=== PATIENT | female | born 1990 | race Caucasian/White ===

== ENCOUNTER 2019-07-10 20:39 | Emergency (ER) | payer OTHER ==
[~2019-07-10] VITALS: Ht 149.9 cm; Wt 59.9 kg
[2019-07-11 00:28] VITALS: BP_SYST 140
--- NOTE | 2019-07-11 00:34 | NUR ---
Patient triaged and placed in waiting room. VSS and patient appears in no acute distress at this time. Accompanied by friend, awaiting available bed, and MD notified of need for MSE.
--- NOTE | 2019-07-11 03:06 | NUR ---
Jairon oden in [facility] - 07/11/19 at 0307 by SDEDRW Pt placed in bed 7.
--- NOTE | 2019-07-11 04:54 | NUR ---
Ambulatory to hallway bed 1
--- NOTE | 2019-07-11 05:41 | NUR ---
Dr. Hammer evaluating pt in [facility]
[2019-07-11 06:20] VITALS: BP_SYST 140
--- NOTE | 2019-07-11 06:20 | NUR ---
Patient given written and verbal discharge instructions and verbalizes understanding. ER MD DR SCHUSTER discussed with patient the results and treatment provided. Patient in stable condition. ID arm band removed. Patient educated on pain management and to follow up with PMD. Pain Scale . Opportunity for questions provided and answered. Medication side effect fact sheet provided.
--- NOTE | 2019-07-11 06:41 | NUR ---
Jairon oden in [facility] - 07/11/19 at [address] Hammer evaluating pt in [facility]
== END 2019-07-11 06:20 | disposition home or self-care (01) ==
LOC: SED 20:39
DX: S09.90XA Unspecified injury of head, initial encounter (principal); V49.40XA Driver injured in collision with unspecified motor vehicles in traffic accident, initial encounter; Y93.89 Activity, other specified; Y92.89 Other specified places as the place of occurrence of the external cause; Y99.8 Other external cause status
CPT/HCPCS: 70450-TC; 81025; 99284

== ENCOUNTER 2023-08-27 15:03 | Emergency (ER) | payer BC, OTHER ==
[~2023-08-27] VITALS: Ht 157.5 cm; Wt 63.5 kg
[2023-08-27 15:03] VITALS: BP_SYST 158; PULSE 85; RESP 20; TEMP 98.2; O2SAT 100
[2023-08-27] MEDS ORDERED: MORPHINE 2 MG/ML INJ. SYRINGE IVP ONE (18:30)
[2023-08-27] MEDS ORDERED: DIPHENHYDRAMINE INJ 50 MG/ML VIAL IVP ONE (18:45)
[2023-08-27 19:11] VITALS: BP_SYST 136; PULSE 73; RESP 18; TEMP 98.2; O2SAT 100
== END 2023-08-27 19:09 | disposition home or self-care (01) ==
LOC: SED 15:03
DX: O36.4XX1 Maternal care for intrauterine death, fetus 1 (principal); O26.891 Other specified pregnancy related conditions, first trimester; Z3A.11 11 weeks gestation of pregnancy; Z88.2 Allergy status to sulfonamides; Z79.899 Other long term (current) drug therapy
CPT/HCPCS: 99284; 96374; 96375; J1200; J2270